=== PATIENT | male | born 1965 | race Caucasian/White ===

== ENCOUNTER 2023-11-25 10:43 | Day surgery (SDC) | payer BC ==
[2023-11-24 13:40] LABS: Absolute Lymphocytes (CBC) 2.5 K/uL (0.7-4.9); Hematocrit 47.8 % (39.6-49.0); Lymphocytes % 29.9 % (15.3-44.8); MPV 7.6 fL (7.6-11.3); Platelets 392 thou/uL (152-406); RBC Red Blood Cell Count 5.49 M/uL (4.33-5.43)
[2023-11-24 13:56] LABS: Potassium 4.2 mEq/L (3.5-5.1)
--- NOTE | 2023-11-24 17:33 | EKG ---
Test Date: 2023-11-24 Test Time: 14:45:17 Social Media Developer: MAURICIO MEASUREMENT RESULTS: Intervals: Rate: 75 AR: 160 QRSD: 88 QT: 380 QTc: 424 Ames: P: 47 AR: 160 QRS: 22 T: 12 INTERPRETIVE STATEMENTS: Normal sinus rhythm Normal ECG No previous ECG available for comparison Electronically Signed On 11-24-23 17:32:53 UTILITY ACCOUNTS DIRECTOR by Wesly Javed
[2023-11-25] MEDS ORDERED: Ringers Lactate 1,000 ML IV ONE (10:56)
[2023-11-25] MEDS ORDERED: CEFOXITIN SODIUM 2 GM/VIAL ONE (10:57)
[2023-11-25] MEDS ORDERED: ROCURONIUM 50 MG/5 ML VIAL IV ONE (11:14)
[2023-11-25] MEDS ORDERED: MIDAZOLAM HCL 2 MG/2 ML INJ ONE (11:14)
[2023-11-25] MEDS ORDERED: LIDOCAINE 2% MPF 5 ML VIAL ONE (11:14)
[2023-11-25] MEDS ORDERED: KETOROLAC 30 MG/ML INJ ONE (11:14)
[2023-11-25] MEDS ORDERED: FENTANYL CITR 100 MCG/2 ML ONE (11:14)
[2023-11-25] MEDS ORDERED: dexAMETHasone 10 MG/ML VIAL ONE (11:14)
[2023-11-25] MEDS ORDERED: ONDANSETRON 4 MG/2 ML VIAL ONE ×2 (11:14→14:45)
[2023-11-25] MEDS ORDERED: propofoL 200 MG/20 ML VIAL IV ONE (11:14)
[2023-11-25] MEDS ORDERED: BUPIVACAINE 0.25% PF 30 ML VIAL ONE (11:43)
[2023-11-25] MEDS ORDERED: NS 0.9% VIAL 20 ML ONE (12:30)
--- NOTE | 2023-11-25 13:33 | P.OP ---
Preoperative diagnosis: Chronic Cholecystitis with Cholelithiasis Postoperative diagnosis: Chronic Cholecystitis with Cholelithiasis Primary procedure: Laparoscopic Cholecystectomy with ICG Cholangiography Anesthesia: GETA + Local Estimated blood loss: <5cc Specimen: Gallbladder Findings: Short Cystic Duct, Dilated Gallbladder Complications: None Transferred to: Recovery Room Condition: Good
[2023-11-25] MEDS: HYDROMORPHONE HCL 1 MG/ML INJ ONE ×4 (14:10→14:25)
[2023-11-25] MEDS: FENTANYL CITR 100 MCG/2 ML ONE ×2 (14:28→14:33)
[2023-11-25] MEDS: HYDROCODONE/APAP 10/325 TAB ONE ×2 (14:50→15:15)
[2023-11-25 17:36] VITALS: BP 118/80; TEMP 97.6; O2SAT 94
--- NOTE | 2023-11-26 00:16 | OP ---
Date of Procedure: 11/25/2023 Surgeon: Des Jacobsen MD, Preoperative Diagnoses: Chronic cholecystitis, cholelithiasis. Postoperative Diagnoses: Chronic cholecystitis, cholelithiasis. Procedure Performed: Laparoscopic cholecystectomy with indocyanine green cholangiography. Anesthesia: General endotracheal plus local with 0.25% Marcaine without epinephrine. Estimated Blood Loss: Less than 5 cc. Specimen: Gallbladder. Findings: Short cystic duct and dilated gallbladder were noted. Complications: None. The patient was transferred to recovery room in good condition. Procedure In Detail: After informed consent was obtained, the patient was brought to the operating r oom, prepped and draped in the usual sterile fashion. After adequate anesthesia was achieved, I anes thetized an area in the supraumbilical position down through subcutaneous tissues. Electrocautery wa s used to achieve hemostasis and a small bleeding vessel at the skin surface. At this point, a 5 mm 0-degree optical trocar was introduced in the abdomen without incident or complication. Insufflation was obtained to 15 mmHg at this time. There was no injury to vital structures upon entry into the a bdomen. Two additional trocars were placed, 1 in the epigastrium, 1 in the right upper quadrant, bot h of these were 5 mm trocars, placed under direct visualization without incident or complication. Th e umbilical trocar was then upsized to a 12 mm under direct visualization without incident or complic ation. The patient was positioned head up right-side up position. Ratcheted grasper was used to gra sp the patient's gallbladder and the patient's right shoulder. Dissection continued down over this s ignificant inflamed gallbladder removing omental attachments of the anterior surface of the gallbladd er. The stomach and duodenum were in close apposition in this area. Blunt dissection was adequate f or getting these mobilized off the gallbladder. At this point, there were inflammatory changes of th e gallbladder consistent with chronic cholecystitis. In addition, the gallbladder was quite dilated at this point. I then dissected down 2 structures and identified both the cystic duct and cystic art john. The critical view of safety was obtained at this point and it was noted that there was a very s hort cystic duct, common duct takeoff. Indocyanine green cholangiography confirmed the anatomy at th is point and confirmed in fact the cystic duct and common duct confluence with a very short cystic du ct. At this point, double titanium clips were placed doubly on the proximal side and singly on the d istal side of both the cystic duct and cystic artery. These structures were then ligated using Endo Celestine without evidence of complication. The gallbladder was then removed from the hepatic fossa wit hout incident or complication, placed in the EndoCatch bag, removed through the umbilical trocar site and sent off for pathologic examination. The area was copiously irrigated. Clips were found to be in good anatomic position at that point. No hemostatic measures were required. I did use some addit ional fulguration of the edges of the gallbladder bed, where some minimal bleeding was appreciated ea rlier during the case and the area hemostasis was verified at this point. I then sucked out the zander ining effluent. I performed indocyanine green cholangiography and did not see any evidence of bile l eakage at the end of the procedure. The remaining outflow was suctioned out once again and ICG chola ngiography was performed once again with no evidence of bile leak. At this point, I then suctioned o ut the remaining effluent, closed the 12 mm trocar site using a Cordell-Carlos suture passer with an 0 Vicryl in an interrupted fashion with good approximation of tissues. The abdomen was then complet shlomo desufflated under direct visualization without incident or complication. Remaining trocars were removed. All skin incisions were then copiously irrigated and closed with a 4-0 Monocryl in a runnin g fashion. Dermabond was placed over top. The patient tolerated the procedure without incident or c omplication and transferred to PACU in good condition. All counts were correct at the end of the case. BOWEN/SABI Voice ID: [id number] Report ID: [id number]
== END 2023-11-25 16:10 | disposition home or self-care (01) ==
LOC: OR 10:43
PROVIDERS: ATTEND Surgery
PROC: BF50200 Other Imaging of Bile Ducts using Fluorescing Agent, Indocyanine Green Dye, Intraoperative (ICD-10-PCS; 2023-11-25)
PROC: 0FT44ZZ Resection of Gallbladder, Percutaneous Endoscopic Approach (ICD-10-PCS; principal; 2023-11-25 12:30)
DX: K80.12 Calculus of gallbladder with acute and chronic cholecystitis without obstruction (principal); E11.9 Type 2 diabetes mellitus without complications
CPT/HCPCS: 93005; 85025; 80048; 36415; 88304; 47563; A4216; J2704; J2001; J2250; J3010 ×2; J1100; J1170 ×2; J0694; J2405 ×2; J7120